=== PATIENT | female | born 1945 | race Two or more races ===

== ENCOUNTER 2018-09-24 12:37 | Emergency (ER) | payer OTHER ==
[~2018-09-24] VITALS: Ht 152.4 cm; Wt 63.5 kg
[2018-09-24] MEDS ORDERED: cloNIDine HCL 0.1 MG TAB ONE (13:05)
[2018-09-24] MEDS ORDERED: cloNIDine HCL 0.1 MG TAB PO ONE (13:15)
[2018-09-24 14:27] LABS: Basophils # (auto) 0 uL; Basophils % (auto) 0.3 % (0.0-2.0); Eosinophils # (auto) 0 uL; Eosinophils % (auto) 0.3 % (0.0-7.0); Hematocrit 40.8 % (36.0-46.0); Hemoglobin 13.6 g/dL (12.2-16.2); Lymphocytes # (auto) 1.9 uL; Lymphocytes % (auto) 18.6 % (10.0-50.0); Mean Corpuscular Hemoglobin 29.2 pg (28.0-32.0); Mean Corpuscular Hgb Conc. 33.3 g/dL (32.0-36.0); Mean Corpuscular Volume 87.8 fL (80.0-100.0); Monocytes # (auto) 0.6 uL; Monocytes % (auto) 6.2 % (0.0-12.0); Neutrophils # (auto) 7.7 uL; Neutrophils % (auto) 74.6 % (37.0-80.0); Platelet Count (auto) 209 10^3/uL (140-450); Red Blood Cells 4.65 10^6/uL (4.0-5.20); Red Cell Distribution Width 13.2 % (11.8-14.3); White Blood Cell 10.3 10^3/uL (4.4-10.8)
[2018-09-24 14:32] LABS: Calcium 8.9 mg/dL (8.5-10.1); Potassium 4.3 mmol/L (3.5-5.1)
[2018-09-24 14:37] LABS: Bilirubin, Total 0.3 mg/dL (0.2-1.0); Total Protein 7.9 g/dL (6.4-8.2)
[2018-09-24 15:13] LABS: Urine Bacteria FEW /hpf (None Seen); Urine Blood 2+ /uL (Negative); Urine Hyaline Cast FEW /lpf (0 - 2); Urine Specific Gravity 1.003 (1.001-1.035); Urine WBC 14 /hpf (0 - 5)
[2018-09-24] MEDS ORDERED: SODIUM CHLORIDE 0.9% 1,000 ML IVB ONE (18:03)
[2018-09-24] MEDS ORDERED: cefTRIAXone 1GM/50ML D5W 50 ML IV ONE (18:15)
[2018-09-24 18:24] LABS: Magnesium 2.2 mg/dL (1.6-2.6)
[2018-09-24 20:27] LABS: INR < 0.93 (0.9-1.15); Partial Thromboplastin Time 28.3 sec (23.64-32.05)
[2018-09-24 22:06] VITALS: BP 105/36
== END 2018-09-24 22:06 | disposition home or self-care (01) ==
LOC: ER 12:37
DX: N20.0 Calculus of kidney (principal); N30.00 Acute cystitis without hematuria; K80.20 Calculus of gallbladder without cholecystitis without obstruction; E11.9 Type 2 diabetes mellitus without complications; E78.5 Hyperlipidemia, unspecified; I10 Essential (primary) hypertension
CPT/HCPCS: 36415; 71045; 74176; 76705; 80053; 81001; 82150; 83690; 83735; 85025; 85610; 85730; 87086; 87088; 87186; 94761; 96365; 99284; J0696; J7030